=== PATIENT | male | born 1975 | race Caucasian/White ===

== ENCOUNTER 2016-11-14 03:35 | Emergency (ER) | payer BC ==
[2016-11-14 03:46] VITALS: RESP 18; TEMP 98.1
[2016-11-14] MEDS: DIPH,PERTUS(ACELL)TETVAC-LF 0.5 ML VIAL IM ONE (04:32)
[2016-11-14 04:35] VITALS: BP 158/94; PULSE 85
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
== END 2016-11-14 05:00 | disposition home or self-care (01) ==
LOC: EC 03:35
DX: S61.211A Laceration without foreign body of left index finger without damage to nail, initial encounter (principal); S61.411A Laceration without foreign body of right hand, initial encounter; S61.213A Laceration without foreign body of left middle finger without damage to nail, initial encounter; S51.812A Laceration without foreign body of left forearm, initial encounter; Z79.899 Other long term (current) drug therapy; F17.200 Nicotine dependence, unspecified, uncomplicated; Z23 Encounter for immunization; W26.0XXA Contact with knife, initial encounter; Y93.89 Activity, other specified
CPT/HCPCS: 12004; 90471; 90715; 99284

== ENCOUNTER → 2019-09-13 | Outpatient (CLI) | payer BC ==
--- NOTE | 2019-09-13 22:17 | CONS ---
CONSULTATION REASON FOR CONSULTATION: Sleep apnea. HISTORY OF PRESENT ILLNESS: 43-year-old male patient coming into the sleep center with increased fatigue sleepiness and tiredness in addition to loud snoring and witnessed apneas as reported by bed partner. The patient works at [employer] and he drives a hi-lo and sometimes he is having issues while driving and concentrating and he feels that he is at high risk of falling asleep while driving. He is having difficulties also in sitting on his desk and staying awake. For that reason, he was referred to me. He is taking Adipex for weight loss and he has lost around 20 pounds. Current BMI is at 37.5. He is taking trazodone 50 mg at bedtime for initiation and maintenance of sleep. His father is well known to me and has obstructive sleep apnea. No sleep paralysis. No hallucinations. No cataplexy. His Soquel score is 17. He goes to bed around 9 p.m., wakes up at 4 a.m. in the morning. On weekends, he goes to bed around 11 p.m., wakes up 11:00 am the next day sleeping around 10-11 hours. PAST MEDICAL HISTORY: Obesity and arthritis. PAST SURGICAL HISTORY: None. ALLERGIES: None. MEDICATIONS ARE: Trazodone 50 mg at bedtime. Adipex 37.5 mg p.o. daily, Motrin 800 mg p.o. daily, hydrocodone 500 mg 1-2 tablets p.o. daily. SOCIAL HISTORY: The patient is a smoker, he binge drinks alcohol around once a week where he drinks a pint of christine. No history of substance abuse. No use of IV drug use. FAMILY HISTORY: His father has obstructive sleep apnea. He was also diagnosed having HHT. REVIEW OF SYSTEMS: Fourteen-point review of systems was done. Positive findings are mentioned in history of present illness. Otherwise negative. PHYSICAL EXAMINATION: BP is 158/93, pulse 107, respirations 16, temperature, 98.1, BMI 37.5, weight is 262. Height is 5 feet 10 inches. Saturation 97% on room air. Neck size is 18 inches. Soquel Score is 17. GENERAL APPEARANCE: Calm and comfortable. Head is atraumatic, normocephalic. NECK: Supple. Mallampati class IV. There is no goiter or neck masses. LUNGS: Clear to auscultation. HEART: Sounds are regular rate and rhythm. Normal S1, S2. No murmurs. ABDOMEN: Soft, nontender. No organomegaly. EXTREMITIES: No edema. No cyanosis or clubbing. NEUROLOGIC: He is awake and alert. There are no focal neurological deficits. PSYCHIATRIC: Negative for anxiety or depression. IMPRESSION: 1. Chronic hypersomnia, Soquel of 17. Rule out obstructive sleep apnea with a high clinical suspicion. 2. Loud snoring. 3. Witnessed apneas. 4. High risk of falling asleep while driving. 5. Obesity with a BMI of 37.5 on Adipex. 6. Osteoarthritis. PLAN: 1. Proceed with a screening HST as soon as possible to rule out obstructive sleep apnea. 2. Avoid driving for now especially when feeling drowsy or sleepy to prevent any potential life-threatening motor vehicle accidents. 3. Encourage further weight loss. 4. Continue Adipex. 5. I question the value of trazodone. 6. Optimize sleep hygiene measures. 7. We will discuss the findings of the home sleep study with the patient. We will further proceed with CPAP therapy if the diagnosis of sleep apnea is confirmed. 8. We will continue to follow. MMODL / IJN: [id number] /
== END | disposition home or self-care (01) ==
LOC: SLEEP 15:24
PROVIDERS: ATTEND Internal Medicine Critical Care Medicine
DX: R06.83 Snoring (principal); E66.9 Obesity, unspecified; R53.83 Other fatigue; M19.90 Unspecified osteoarthritis, unspecified site; Z68.37 Body mass index [BMI] 37.0-37.9, adult; Z87.891 Personal history of nicotine dependence; Z79.891 Long term (current) use of opiate analgesic; Z79.899 Other long term (current) drug therapy
CPT/HCPCS: 99211

== ENCOUNTER → 2020-08-14 | Outpatient (CLI) | payer BC ==
--- NOTE | 2020-08-14 17:28 | CONS ---
CONSULTATION PROGRESS NOTE FROM THE SLEEP CENTER: This patient is coming in for a followup regarding his obstructive sleep apnea treatment. The patient was diagnosed having severe SHANE with an AHI of 75. He was very much symptomatic, to the point where he was found asleep during his working hours. As such, the patient was offered an APAP and currently is on a minimum pressure of 5 and a maximum pressure of 20. Over the past 70 days, the patient has been able to achieve any adequate use or compliancy on his machine. He is unable to use it even more than an hour or so. He feels that he is suffocating. He is unable to exhale through the machine. He was given a full-face mask which makes him quite claustrophobic. He is not sure if he is a mouth breather. However, it seems that he breathes through his mouth most of the time. He is unfortunately still tired, fatigued and sleepy and he is coming in for further advice regarding any adjustments that we can do on his CPAP machine to make the treatment more successful. BP is 129/83, pulse 94, respirations 16, temperature 98.4, saturation is 96% on room air. Weight is 291. GENERAL APPEARANCE: Calm, comfortable. HEAD: Atraumatic, normocephalic. NECK: Supple. No JVD. No goiter or neck mass. LUNGS: Clear to auscultation. HEART: Sounds are regular rate and rhythm, normal S1, S2. No murmurs. ABDOMEN: Soft, nontender, no organomegaly. EXTREMITIES: No edema, no cyanosis or clubbing. IMPRESSION: 1. Severe obstructive sleep apnea AHI of 75. 2. Severe nocturnal oxygen desaturation secondary to obstructive sleep apnea. 3. Severe hypersomnia, [place] score of 17. 4. Loud snoring. 5. Difficulty in using CPAP therapy with poor compliancy. 6. Obesity. 7. Osteoarthritis. PLAN: I am not sure the patient will be able to tolerate a full-face mask. I tried different options today, in terms of full-face masks and ultimately I decided to go with a nose mask. I gave the patient an Air Fit N20 large size nose mask and I lowered the APAP machine pressure to keep the minimum pressure of 5 and a maximum pressure of 9. He was able to tolerate 9 on today's evaluation here in the office. He will be sent with this current setting and he will be seeing me in a short-term followup in a week to assess his clinical response. He may need a chin strap. If he fails treatment, he will need an in-lab CPAP titration or possible BiPAP therapy. If he fails the treatment altogether, he needs to consider other alternatives such an Inspire system. We will continue to follow and make further recommendations based on his progress. OLAYINKA / ROXANE: [id number] /
== END | disposition home or self-care (01) ==
LOC: SLEEP 15:25
PROVIDERS: ATTEND Internal Medicine Critical Care Medicine
DX: G47.33 Obstructive sleep apnea (adult) (pediatric) (principal); G47.10 Hypersomnia, unspecified; E66.9 Obesity, unspecified; M19.90 Unspecified osteoarthritis, unspecified site; Z99.89 Dependence on other enabling machines and devices